=== PATIENT | male | born 1960 | race Caucasian/White ===

== ENCOUNTER 2021-06-21 08:17 | Inpatient (IN) | payer OTHER ==
[~2021-06-21] VITALS: Ht 177.8 cm; Wt 86.4 kg
[2021-06-21 09:24] LABS: BASOPHIL 0.5 % (0-2); EOSINOPHIL 4.2 % (0-5); HCT 32.4 % (42.0-52.0); HGB 10.5 g/dl (13.2-18.0); LYMPHOCYTE 15.4 % (15-48); MCH 31.2 pg (25.0-31.0); MCHC 32.4 g/dL (32.0-36.0); MCV 96.1 fL (78.0-100.0); MONOCYTE 6.2 % (0-12); MPV 8.8 fL (6.0-9.5); NEUTROPHIL 73.2 % (41-80); NRBC 0; PLT 400 K/uL (150-400); RBC 3.37 M/uL (4.70-6.00); RDW 13.2 % (11.5-14.0); WBC 13.2 K/uL (4.0-10.5)
[2021-06-21 09:33] LABS: ALBUMIN 2.9 g/dL (3.4-5.0); BILIRUBIN - TOTAL 0.4 mg/dL (0.2-1.0); BUN/CREAT RATIO (CALC) 16.8 RATIO; CREATININE 1.01 mg/dL (0.67-1.17); GLOBULIN (CALCULATION) 4.2 g/dL; POTASSIUM 4.3 mmol/L (3.5-5.1); TOTAL PROTEIN 7.1 g/dL (6.4-8.2)
[2021-06-21 09:39] LABS: LACTIC ACID 0.9 mmol/L (0.4-1.9)
[2021-06-21] MEDS ORDERED: LISINOPRIL5 MG PO (12:13)
[2021-06-21] MEDS ORDERED: BRILINTA90 MG PO (12:13)
[2021-06-21] MEDS ORDERED: SIMVASTATIN20 MG PO (12:14)
[2021-06-22 06:10] LABS: BASOPHIL 0 % (0-2); EOSINOPHIL 0.1 % (0-5); HCT 31.5 % (42.0-52.0); HGB 10.2 g/dl (13.2-18.0); MCH 31.1 pg (25.0-31.0); MCHC 32.4 g/dL (32.0-36.0); MONOCYTE 0.5 % (0-12); MPV 8.7 fL (6.0-9.5); NEUTROPHIL 89.8 % (41-80); NRBC 0; PLT 360 K/uL (150-400); RBC 3.28 M/uL (4.70-6.00); RDW 13.2 % (11.5-14.0); WBC 10.3 K/uL (4.0-10.5)
[2021-06-22 07:45] LABS: ALBUMIN 2.7 g/dL (3.4-5.0); BILIRUBIN - TOTAL 0.5 mg/dL (0.2-1.0); BUN/CREAT RATIO (CALC) 18.9 RATIO; CREATININE 0.95 mg/dL (0.67-1.17); GLOBULIN (CALCULATION) 4.3 g/dL; MAGNESIUM 2.2 mg/dL (1.8-2.4); POTASSIUM 4.9 mmol/L (3.5-5.1)
[2021-06-23 06:06] LABS: BASOPHIL 0.2 % (0-2); EOSINOPHIL 1.4 % (0-5); HCT 29.7 % (42.0-52.0); HGB 9.4 g/dl (13.2-18.0); LYMPHOCYTE 13.3 % (15-48); MCH 31.3 pg (25.0-31.0); MCHC 31.6 g/dL (32.0-36.0); MONOCYTE 6.5 % (0-12); MPV 8.9 fL (6.0-9.5); NEUTROPHIL 77.9 % (41-80); NRBC 0; PLT 398 K/uL (150-400); RDW 13.5 % (11.5-14.0)
[2021-06-23 06:07] LABS: WBC 18.8 K/uL (4.0-10.5)
[2021-06-23 06:19] LABS: ALBUMIN 2.4 g/dL (3.4-5.0); BILIRUBIN - TOTAL 0.5 mg/dL (0.2-1.0); CREATININE 1.04 mg/dL (0.67-1.17); GLOBULIN (CALCULATION) 3.8 g/dL; POTASSIUM 4.7 mmol/L (3.5-5.1); TOTAL PROTEIN 6.2 g/dL (6.4-8.2)
--- NOTE | 2021-06-23 13:22 | NUR ---
06/23/21 Mr. Mccormick lives at home with his spouse. He is retired. The couple have 3 children. He was independent in the estuardo and community prior to admission. - Nursing will schedule an outpatient biopsy. An appointment was scheduled with Dr. Lauren (scheduling - [phone] option # 5) for 07/08 at noon.
[2021-06-24 06:23] LABS: BASOPHIL 0.7 % (0-2); EOSINOPHIL 7.2 % (0-5); HCT 31.2 % (42.0-52.0); HGB 10.1 g/dl (13.2-18.0); MCH 32.1 pg (25.0-31.0); MCHC 32.4 g/dL (32.0-36.0); MONOCYTE 9.6 % (0-12); MPV 8.6 fL (6.0-9.5); NEUTROPHIL 59.3 % (41-80); NRBC 0; PLT 382 K/uL (150-400); RBC 3.15 M/uL (4.70-6.00); RDW 13.7 % (11.5-14.0); WBC 12.9 K/uL (4.0-10.5)
[2021-06-24 07:04] LABS: ALBUMIN 2.6 g/dL (3.4-5.0); BILIRUBIN - TOTAL 0.3 mg/dL (0.2-1.0); BUN/CREAT RATIO (CALC) 17.9 RATIO; C-REACTIVE PROTEIN 1.9 mg/dL (<=0.90); CREATININE 1.06 mg/dL (0.67-1.17); GLOBULIN (CALCULATION) 3.6 g/dL; POTASSIUM 4.3 mmol/L (3.5-5.1); TOTAL PROTEIN 6.2 g/dL (6.4-8.2)
[2021-06-24] MEDS ORDERED: VIBRAMYCIN100 MG PO (14:09)
[2021-06-24] MEDS ORDERED: AUGMENTIN 875-1 EACH PO (14:09)
[2021-06-24 15:40] LABS: INR 1.03 (0.9-1.2); PROTHROMBIN TIME 12.9 SECONDS (11.8-13.4)
[2021-06-24 15:41] LABS: PTT 31.6 SECONDS (24.4-34.7)
== END 2021-06-24 15:20 | disposition home or self-care (01) | DRG 193 ==
LOC: FER 08:17 → FTCU 10:57 → FMS 06-23 18:16
PROVIDERS: Emergency Medicine; Family Medicine; ADMIT Internal Medicine
DX: J18.9 Pneumonia, unspecified organism (principal); J96.01 Acute respiratory failure with hypoxia; J90 Pleural effusion, not elsewhere classified; Z20.822 Contact with and (suspected) exposure to COVID-19; I25.10 Atherosclerotic heart disease of native coronary artery without angina pectoris; I10 Essential (primary) hypertension; R91.8 Other nonspecific abnormal finding of lung field; R59.0 Localized enlarged lymph nodes; Z95.5 Presence of coronary angioplasty implant and graft; Z98.890 Other specified postprocedural states; Z88.6 Allergy status to analgesic agent; Z87.891 Personal history of nicotine dependence; Z79.899 Other long term (current) drug therapy; Z82.49 Family history of ischemic heart disease and other diseases of the circulatory system
CPT/HCPCS: 36415; 36600; 71045; 71275; 80053; 82803; 83605; 83735; 84145; 85025; 85610; 85730; 86140; 87040; 87070; 87205; 94010; J2543; Q9967; U0002

== ENCOUNTER 2021-07-02 02:36 | Emergency (ER) | payer OTHER ==
[~2021-07-02 02:36] MED LIST: AUGMENTIN 875-1 EACH PO; BRILINTA90 MG PO; LISINOPRIL5 MG PO; SIMVASTATIN20 MG PO; VIBRAMYCIN100 MG PO
[2021-07-02 04:58] LABS: BASOPHIL 0.6 % (0-2); EOSINOPHIL 3.5 % (0-5); HCT 28.9 % (42.0-52.0); HGB 9.1 g/dl (13.2-18.0); LYMPHOCYTE 11.7 % (15-48); MCH 30.8 pg (25.0-31.0); MCHC 31.5 g/dL (32.0-36.0); MONOCYTE 7.4 % (0-12); MPV 8.9 fL (6.0-9.5); NEUTROPHIL 76.3 % (41-80); NRBC 0; PLT 424 K/uL (150-400); RBC 2.95 M/uL (4.70-6.00); RDW 13.9 % (11.5-14.0); WBC 13.6 K/uL (4.0-10.5)
[2021-07-02 05:29] LABS: CORONAVIRUS 2019 SARS-COV-2 NEGATIVE (NEGATIVE); INFLUENZA A NAA NEGATIVE (NEGATIVE)
[2021-07-02 05:46] LABS: ALBUMIN 2.6 g/dL (3.4-5.0); BILIRUBIN - TOTAL 0.2 mg/dL (0.2-1.0); CREATININE 0.88 mg/dL (0.67-1.17); POTASSIUM 4.9 mmol/L (3.5-5.1); TOTAL PROTEIN 6.6 g/dL (6.4-8.2)
[2021-07-02] MEDS ORDERED: NORCO 5-325 TA1 EACH PO (10:18)
== END 2021-07-02 10:56 | disposition home or self-care (01) ==
LOC: FER 02:36
PROVIDERS: Internal Medicine
DX: R07.89 Other chest pain (principal); R91.8 Other nonspecific abnormal finding of lung field; Z87.891 Personal history of nicotine dependence; Z88.5 Allergy status to narcotic agent; Z20.822 Contact with and (suspected) exposure to COVID-19
CPT/HCPCS: 36415; 71275; 80053; 83880; 84145; 84484; 85025; Q9967; U0002

== ENCOUNTER 2021-07-12 10:07 | Emergency (ER) | payer OTHER ==
[~2021-07-12 10:07] MED LIST changes: +NORCO 5-325 TA1 EACH PO
[2021-07-12 10:46] LABS: BASOPHIL 0.3 % (0-2); EOSINOPHIL 1.6 % (0-5); HCT 27.5 % (42.0-52.0); HGB 8.5 g/dl (13.2-18.0); LYMPHOCYTE 9.4 % (15-48); MCH 29.1 pg (25.0-31.0); MCHC 30.9 g/dL (32.0-36.0); MCV 94.2 fL (78.0-100.0); MONOCYTE 10.3 % (0-12); MPV 8.8 fL (6.0-9.5); NEUTROPHIL 77.7 % (41-80); NRBC 0; PLT 518 K/uL (150-400); RBC 2.92 M/uL (4.70-6.00); WBC 11.7 K/uL (4.0-10.5)
[2021-07-12 10:48] LABS: BUN/CREAT RATIO (CALC) 16.2 RATIO; CREATININE 1.17 mg/dL (0.67-1.17)
[2021-07-12 12:08] LABS: BILIRUBIN - TOTAL 0.5 mg/dL (0.2-1.0); GLOBULIN (CALCULATION) 4.7 g/dL; TOTAL PROTEIN 6.7 g/dL (6.4-8.2)
[2021-07-12 12:11] LABS: CORONAVIRUS 2019 SARS-COV-2 NEGATIVE (NEGATIVE); INFLUENZA A NAA NEGATIVE (NEGATIVE)
[2021-07-12] MEDS ORDERED: VENTOLIN HFA IN18 GM INH (12:51)
[2021-07-12] MEDS ORDERED: SYMBICORT 16010.2 GM INH (12:51)
== END 2021-07-12 15:08 | disposition home or self-care (01) ==
LOC: FER 10:07
PROVIDERS: Internal Medicine
DX: C34.91 Malignant neoplasm of unspecified part of right bronchus or lung (principal); C78.2 Secondary malignant neoplasm of pleura; J91.0 Malignant pleural effusion; Z87.891 Personal history of nicotine dependence; Z20.822 Contact with and (suspected) exposure to COVID-19
CPT/HCPCS: 36415; 71045; 71275; 80048; 82040; 82247; 84075; 84145; 84155; 84450; 84460; 84484; 85025; 93005; Q9967; U0002

== ENCOUNTER 2021-10-15 22:48 | Inpatient (IN) | payer OTHER ==
[~2021-10-15] VITALS: Ht 177.8 cm; Wt 79.8 kg
[~2021-10-15 22:48] MED LIST changes: +COMPAZINE10 MG PO; +DEXAMETHASONE 2M2 MG PO; +FOLIC ACID1 MG PO; +SYMBICORT 16010.2 GM INH; +VENTOLIN HFA IN18 GM INH
[2021-10-16] MEDS ORDERED: B12 ACTIVE1000 MCG PO (00:20)
[2021-10-16] MEDS ORDERED: ALLEGRA ALLERG180 MG PO (00:22)
[2021-10-16] MEDS ORDERED: FEOSOL325 M1 PO ×2 (00:22→15:39)
[2021-10-16] MEDS ORDERED: CEFDINIR300 MG PO (00:23)
[2021-10-16] MEDS ORDERED: ASPIRIN EC81 MG PO (00:23)
[2021-10-16] MEDS ORDERED: 3IN1 COMMODE (00:24)
[2021-10-16] MEDS ORDERED: MELATONIN5 M2 PO (00:24)
[2021-10-16] MEDS ORDERED: RESTORIL15 MG PO (00:24)
[2021-10-16 00:31] LABS: BASOPHIL 0.2 % (0-2); EOSINOPHIL 1.4 % (0-5); HCT 15.2 % (42.0-52.0); LYMPHOCYTE 32.5 % (15-48); MCHC 32.2 g/dL (32.0-36.0); MCV 108.6 fL (78.0-100.0); MONOCYTE 13.9 % (0-12); MPV 10.1 fL (6.0-9.5); NEUTROPHIL 51.8 % (41-80); NRBC 0.7; PLT 98 K/uL (150-400); RDW 26.9 % (11.5-14.0)
[2021-10-16 00:33] LABS: HGB 4.9 g/dl (13.2-18.0)
[2021-10-16 00:34] LABS: WBC 4.2 K/uL (4.0-10.5)
[2021-10-16 01:14] LABS: IRON % SATURATION 18.8 %SAT (20-50)
[2021-10-16 01:58] LABS: BILIRUBIN - TOTAL 0.3 mg/dL (0.2-1.0); BUN/CREAT RATIO (CALC) 11.6 RATIO; CREATININE 1.12 mg/dL (0.67-1.17); GLOBULIN (CALCULATION) 4.4 g/dL; POTASSIUM 3.9 mmol/L (3.5-5.1); TOTAL PROTEIN 7.4 g/dL (6.4-8.2)
[2021-10-16 13:13] LABS: HGB 7.4 g/dL (13.2-18.0)
== END 2021-10-16 16:30 | disposition home or self-care (01) | DRG 812 ==
LOC: FMS 22:48
PROVIDERS: Family Medicine; Nurse Practitioner; ADMIT Internal Medicine
PROC: 30233N1 Transfusion of Nonautologous Red Blood Cells into Peripheral Vein, Percutaneous Approach (ICD-10-PCS; principal; 2021-10-16)
DX: D53.9 Nutritional anemia, unspecified (principal); C34.90 Malignant neoplasm of unspecified part of unspecified bronchus or lung; I12.9 Hypertensive chronic kidney disease with stage 1 through stage 4 chronic kidney disease, or unspecified chronic kidney disease; N18.2 Chronic kidney disease, stage 2 (mild); Z20.822 Contact with and (suspected) exposure to COVID-19; D50.9 Iron deficiency anemia, unspecified; I25.10 Atherosclerotic heart disease of native coronary artery without angina pectoris; N40.0 Benign prostatic hyperplasia without lower urinary tract symptoms; E78.00 Pure hypercholesterolemia, unspecified; D69.6 Thrombocytopenia, unspecified; Z79.82 Long term (current) use of aspirin; Z92.21 Personal history of antineoplastic chemotherapy; Z95.5 Presence of coronary angioplasty implant and graft; Z88.5 Allergy status to narcotic agent
CPT/HCPCS: 36415; 36430; 71045; 80053; 82607; 82728; 82746; 83540; 83550; 85018; 85025; 86850; 86900; 86901; 86922; 94010; C9113; J0885; J1642; J2405; J2916; J7030; P9016; U0002